=== PATIENT | male | born 1970 | race Caucasian/White ===

== ENCOUNTER 2017-08-04 12:31 | Outpatient (CLI) | payer OTHER ==
--- NOTE | 2017-08-04 15:15 | RAD ---
RADIOGRAPH CHEST 2 VIEWS: HISTORY: A 47-year-old male with dyspnea. FINDINGS: There is no air space density, pulmonary edema, pleural effusion, pneumothorax, or cardiomegaly. IMPRESSION: No acute cardiopulmonary findings. jn [] POS: MARY
== END 2017-08-04 12:32 | disposition home or self-care (01) ==
LOC: RAD 12:31
PROVIDERS: ATTEND Internal Medicine Pulmonary Disease
DX: R06.00 Dyspnea, unspecified (principal)
CPT/HCPCS: 71046

== ENCOUNTER 2018-06-06 13:38 | Outpatient (CLI) | payer OTHER ==
--- NOTE | 2018-06-06 15:27 | CT ---
CT OF THE SINUSES WITHOUT CONTRAST: INDICATION: History of chronic sinusitis. COMPARISON: None. FINDINGS: There are postsurgical changes of an ethmoidectomy seen bilaterally. There is mild mucosal thickenin g seen within the ethmoid air cells as well as within the left major sphenoid sinus and along the inf erior aspect of both maxillary sinuses. The infundibulum and osteomeatal units are widely patent. T he frontal sinuses are clear. Orbital rims are intact. The orbital irwin and floor are intact. The zygomatic arches are intact. The visualized TMJs and pterygoid plates are within normal limits. Th e osseous nasal septum is midline. The visualized intraorbital and intracranial contents appear with in normal limits. IMPRESSION: Mild paranasal sinus disease. Postsurgical changes of the paranasal sinuses. POS: [facility]
== END 2018-06-06 13:39 | disposition home or self-care (01) ==
LOC: BICCT 13:38
PROVIDERS: ATTEND Family Medicine
DX: J32.8 Other chronic sinusitis (principal); Z98.890 Other specified postprocedural states

== ENCOUNTER 2021-04-23 13:19 | Outpatient (CLI) | payer BC | END 2021-04-23 13:20 | disposition home or self-care (01) | LOC: BICRAD 13:19 | PROVIDERS: ATTEND Family Medicine | DX: R07.81 Pleurodynia (principal) ==